=== PATIENT | female | born 1945 | race Caucasian/White ===

== ENCOUNTER 2017-01-03 10:09 | Emergency (ER) | payer MEDICARE, OTHER | END 2017-01-03 12:59 | disposition home or self-care (01) | LOC: FER 10:09 | DX: S76.012A Strain of muscle, fascia and tendon of left hip, initial encounter (principal); W01.0XXA Fall on same level from slipping, tripping and stumbling without subsequent striking against object, initial encounter; Y92.009 Unspecified place in unspecified non-institutional (private) residence as the place of occurrence of the external cause | CPT/HCPCS: 73502; J1100; J1885 ==